=== PATIENT | female | born 1970 | race American Indian/Alaskan Native ===

== ENCOUNTER 2018-03-03 20:17 | Inpatient (IN) | payer OTHER ==
[2018-03-03 20:50] LABS: PROTHROMBIN TIME 10.6 Seconds (9.8-13.1)
[2018-03-03 20:53] LABS: PARTIAL THROMBOPLASTIN TIME 25.1 Seconds (25.6-37.1)
[2018-03-03 20:59] LABS: ALB/GLOB RATIO 1.3 (1.0-2.1); ALBUMIN 4.1 g/dL (3.5-5.0); ALT/SGPT 30 U/L (9-52); AST/SGOT 34 U/L (14-36); BLOOD UREA NITROGEN 9 mg/dl (7-17); CALCIUM 9.2 mg/dL (8.4-10.2); GFR NON-AFRICAN AMERICAN > 60; HDL CHOLESTEROL 42 MG/DL (30-70)
[2018-03-03 21:10] LABS: LDL CHOLESTEROL 106 mg/dL (0-129)
--- NOTE | 2018-03-03 21:19 | ED PDOC ---
HPI:STROKE - Time Time: 20:30 - Historian Historian: Patient - Chief Complaint Chief Complaint: Weakness, Numbness - Onset Date: 03/03/18 Onset: Just prior to presenting (x20min) - Location Locate right:: Upper extremity - Notes: Notes:: Luna Moreno is a 47 year old female, with a past medical history of Graves' disease, who self presents to the emergency department for right arm numbness associated with an episode of weakness onset x20 min prior to arrival. Patient reports during the episode she had a funny sensation to her tongue described as numbness but no facial droop, trouble speaking or walking. Patient also reports feeling numbness to her right thorax and extremity but no weakness, she is able to speak and swallow normally. She denies any headache, nausea, vomit or other medical complaints. PMD: None provided. NIHSS Stroke Scale - Date/Time Evaluation Performed Date Performed: 03/03/18 Time Performed: 20:30 When Was NIHSS Performed: Baseline - How Severe is the Stroke Level of Consciousness: 0=Alert LOC to Questions: 0=Both comments correct LOC to commands: 0=Obeys both correctly Best Gaze: 0=Normal Visual: 0=No visual loss Facial: 0=Normal Motor Arm - Left: 0=No drift Motor Arm - Right: 0=No drift Motor Leg - Left: 0=No drift Motor Leg - Right: 0=No drift Limb Ataxia: 0=Absent Sensory: 0=Normal Best Language: 0=No aphasia Dysarthia: 0=Normal articulation Extinction & Inattention (Neglect): 0=Normal, no object Score: 0 Past Medical History Reviewed: Historical Data, Nursing Documentation, Vital Signs Vital Signs: Last Vital Signs Temp 97.4 F L 03/03/18 20:22 Pulse 66 03/03/18 20:56 Resp 20 03/03/18 20:22 BP 139/89 03/03/18 20:56 Pulse Ox 98 03/03/18 20:22 - Medical History PMH: Graves' Disease - Surgical History Other surgeries: urethral cyst surgery, D&C - Family History Family History: States: Unknown Family Hx - Social History Current smoker - smoking cessation education provided: No Alcohol: Occasional Drugs: Denies - Home Medications Home Medications: Ambulatory Orders Medication Instructions Recorded No Known Home Med 03/03/18 - Allergies Allergies/Adverse Reactions: Allergies Allergy/AdvReac Type Severity Reaction Status Date / Time shellfish derived Allergy RASH Verified 03/03/18 20:22 Review of Systems ROS Statement: Except As Marked, All Systems Reviewed And Found Negative Gastrointestinal: Negative for: Nausea, Vomiting Neurological: Positive for: Weakness (resolved), Numbness (right arm, right thorax and tongue). Negative for: Change in Speech, Headache Physical Exam - Reviewed Nursing Documentation Reviewed: Yes Vital Signs Reviewed: Yes - Physical Exam Appears: Positive for: No Acute Distress Head Exam: Positive for: ATRAUMATIC, NORMAL INSPECTION, NORMOCEPHALIC Skin: Positive for: Normal Color, Warm, Dry Eye Exam: Positive for: Normal appearance, EOMI, PERRL ENT: Positive for: Normal ENT Inspection Neck: Positive for: Painless ROM, Supple Cardiovascular/Chest: Positive for: Regular Rate, Rhythm. Negative for: Murmur Respiratory: Positive for: Normal Breath Sounds. Negative for: Respiratory Distress Gastrointestinal/Abdominal: Positive for: Normal Exam, Soft. Negative for: Tenderness, Guarding, Rebound Back: Positive for: Normal Inspection. Negative for: Vertebral Tenderness Extremity: Positive for: Normal ROM (upper and lower extremities). Negative for : Deformity, Swelling Neurologic/Psych: Positive for: Alert, slab off mill tender II-XII (intact), Oriented (x3), Cerebellar Tests (normal), Gait (steady). Negative for: Motor/Sensory Deficits , Aphasia, Facial Droop - Laboratory Results Result Diagrams: 03/03/18 20:40 03/03/18 20:45 - ECG O2 Sat by Pulse Oximetry: 98 (RA) Pulse Ox Interpretation: Normal - Core Measure Core Measure Indicators: Code Stroke - Critical Care Total Time (In Min): 30 Documented Critical Care: Time excludes all time spent performint seperately billable procedures Medical Decision Making Medical Decision Making: Initial Impression: 47 y/o female with subjective numbness of right upper extremity and episode of weakness which resolved. Code stroke announced. 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 No hemorrhage. No significant white matter disease. Ventricles: Unremarkable. No ventriculomegaly. Bones/joints: Unremarkable. No acute fracture. Soft tissues: Unremarkable. Sinuses: Unremarkable as visualized. No acute sinusitis. Mastoid air cells: Unremarkable as visualized. No mastoid effusion. Sella: Empty appearing sella. IMPRESSION: 1. No acute intracranial finding. 2. 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 3. Empty appearing sella. 21:10 -Discussed case with Dr. Jamison who advised admitting patient tonight for further observation and monitoring. Requested patient had an echocardiogram and CT brain angio in the morning. Patient referred to medical services admission. Diagnosis of paresthesias and numbness. ----- Scribe Attestation: Documented by Andrew Momin, acting as a scribe for Kavon Horton MD. Provider Scribe Attestation: All medical record entries made by the Scribe were at my direction and personally dictated by me. I have reviewed the chart and agree that the record accurately reflects my personal performance of the history, physical exam, medical decision making, and the department course for this patient. I have also personally directed, reviewed, and agree with the discharge instructions and disposition. Disposition - Clinical Impression Clinical Impression: Weakness of one side of body - Patient ED Disposition Is Patient to be Admitted: Yes Discussed With : Harley Jamison (Dr Valle) Doctor Will See Patient In The: Hospital Counseled Patient/Family Regarding: Studies Performed, Diagnosis - Disposition Disposition Time: 21:10 Condition: FAIR - Pt Status Changed To: Hospital Disposition Of: Inpatient - Admit Certification Admit to Inpatient:: After my assessment, the patient will require hospitalization for at least two midnights. This is because of the severity of symptoms shown, intensity of services needed, and/or the medical risk in this patient being treated as an outpatient.
[2018-03-03] MEDS ORDERED: Iodixanol 320 MG/ML 100 ML BOTTLE IV ONE (21:27)
[2018-03-03] MEDS ORDERED: Sodium Chloride 0.9% 50 ML IV ONE (21:27)
[2018-03-03 23:17] LABS: BASO % 0.6 % (0.0-2.0); EOS # 0.1 K/uL (0.0-0.7); EOS % 1.4 % (0.0-4.0); HEMOGLOBIN 12.5 g/dL (12.0-16.0); LYMPH # 3.8 K/uL (1.0-4.3); LYMPH % 46.4 % (20.0-40.0); MEAN CELL VOLUME 88.9 fl (81.0-99.0); MEAN CORPUSCULAR HEMOGLOBIN 29.8 pg (27.0-31.0); MEAN CORPUSCULAR HGB CONC 33.6 g/dL (33.0-37.0); MEAN PLATELET VOLUME 10.3 fl (7.2-11.7); MONO # 0.5 K/uL (0.0-0.8); MONO % 5.6 % (0.0-10.0); NEUT # 3.8 K/uL (1.8-7.0); NRBC % 0.1 % (0.0-0.0); RBC 4.18 Mil/uL (3.80-5.20); RED CELL DISTRIBUTION WIDTH 15.2 % (11.5-14.5); WHITE BLOOD COUNT 8.2 K/uL (4.8-10.8)
[2018-03-04 07:05] LABS: BASO % 0.5 % (0.0-2.0); EOS # 0.1 K/uL (0.0-0.7); EOS % 1.8 % (0.0-4.0); HEMOGLOBIN 11.8 g/dL (12.0-16.0); LYMPH # 2.4 K/uL (1.0-4.3); LYMPH % 40.8 % (20.0-40.0); MEAN CORPUSCULAR HEMOGLOBIN 30.1 pg (27.0-31.0); MEAN CORPUSCULAR HGB CONC 33.9 g/dL (33.0-37.0); MEAN PLATELET VOLUME 9.4 fl (7.2-11.7); MONO # 0.5 K/uL (0.0-0.8); NEUT # 2.9 K/uL (1.8-7.0); NEUT % 47.9 % (50.0-75.0); NRBC % 0.2 % (0.0-0.0); RBC 3.91 Mil/uL (3.80-5.20); RED CELL DISTRIBUTION WIDTH 14.8 % (11.5-14.5)
[2018-03-04 07:25] LABS: BLOOD UREA NITROGEN 8 mg/dl (7-17); CALCIUM 9.1 mg/dL (8.4-10.2); GFR NON-AFRICAN AMERICAN > 60; HDL CHOLESTEROL 39 MG/DL (30-70)
[2018-03-04 07:36] LABS: LDL CHOLESTEROL 102 mg/dL (0-129)
--- NOTE | 2018-03-04 08:41 | CT ---
Date of service: 03/03/2018 PROCEDURE: CT HEAD WITHOUT CONTRAST. HISTORY: code stroke COMPARISON: None available. TECHNIQUE: Axial computed tomography images were obtained through the head/brain without intravenous contrast. Radiation dose: Total exam DLP = mGy-cm. This CT exam was performed using one or more of the following dose reduction techniques: Automated exposure control, adjustment of the mA and/or kV according to patient size, and/or use of iterative reconstruction technique. FINDINGS: HEMORRHAGE: No intracranial hemorrhage. BRAIN: No mass effect or edema. No atrophy or chronic microvascular ischemic changes. VENTRICLES: Unremarkable. No hydrocephalus. CALVARIUM: Unremarkable. PARANASAL SINUSES: Unremarkable as visualized. No significant inflammatory changes. MASTOID AIR CELLS: Unremarkable as visualized. No inflammatory changes. OTHER FINDINGS: None. IMPRESSION: Normal CT of the Head.
--- NOTE | 2018-03-04 09:03 | RAD ---
Date of service: 03/03/2018 HISTORY: Code Stroke COMPARISON: No prior. FINDINGS: LUNGS: No active pulmonary disease. PLEURA: No significant pleural effusion identified, no pneumothorax apparent. CARDIOVASCULAR: Normal. OSSEOUS STRUCTURES: No significant abnormalities. VISUALIZED UPPER ABDOMEN: Normal. OTHER FINDINGS: None. IMPRESSION: No active disease.
[2018-03-04] MEDS ORDERED: Iodixanol 320 MG/ML 100 ML BOTTLE IV ONE (14:14)
[2018-03-04] MEDS ORDERED: Sodium Chloride 0.9% 50 ML IV ONE (14:15)
[2018-03-04] MEDS: Enoxaparin 40 mg Syringe SC SCH (15:30)
[2018-03-04 16:36] LABS: T4 8.87 ug/dl (5.5-11.0)
[2018-03-04 16:49] LABS: T3 1.21 nmol/L (1.49-2.60)
--- NOTE | 2018-03-04 17:43 | CARD ---
APPROVED REPORT Date of service: 03/03/2018 EKG Measurement Heart [id number] IL [id number] [id number] <Conclusion> Normal sinus rhythm Cannot rule out Anterior infarct, age undetermined Abnormal ECG
--- NOTE | 2018-03-04 18:44 | CP.PCM.CON ---
History of Present Illness - History of Present Illness History of Present Illness: Neurology Consultation Note: Mrs. Moreno is a 47-year-old woman with a past medical history of Grave's disease, who states that she developed the sudden onset of left arm numbness associated with some slight weakness that was resolving when she arrived to the ED. When I saw the patient, she said that the numbness has improved, but she still feels like her right arm is "noodley"... CT scan of the head was normal. CTA was pending. Review of Systems - Review of Systems All systems: reviewed and no additional remarkable complaints except Past Patient History - Past Medical History & Family History Past Medical History?: Yes - Past Social History Alcohol: Occasional Drugs: Denies - CARDIAC Hx Cardiac Disorders: No - PULMONARY Hx Respiratory Disorders: No - NEUROLOGICAL Hx Neurological Disorder: No - HEENT Hx HEENT Problems: No - RENAL Hx Chronic Kidney Disease: No - ENDOCRINE/METABOLIC Hx Endocrine Disorders: Yes Other/Comment: Graves Disease - HEMATOLOGICAL/ONCOLOGICAL Hx Blood Disorders: No - INTEGUMENTARY Hx Dermatological Problems: No - MUSCULOSKELETAL/RHEUMATOLOGICAL Hx Musculoskeletal Disorders: No Hx Falls: No - GASTROINTESTINAL Hx Gastrointestinal Disorders: No - GENITOURINARY/GYNECOLOGICAL Hx Genitourinary Disorders: No - PSYCHIATRIC Hx Psychophysiologic Disorder: No Hx Substance Use: No - SURGICAL HISTORY Hx Surgeries: Yes Hx Section: Yes - ANESTHESIA Hx Anesthesia: No Hx Anesthesia Reactions: No Hx Malignant Hyperthermia: No Has any member of the family had a problem w/ anesthesia?: No Meds Allergies/Adverse Reactions: Allergies Allergy/AdvReac Type Severity Reaction Status Date / Time shellfish derived Allergy RASH Verified 03/03/18 20:22 - Medications Medications: Current Medications Aspirin (Aspirin Chewable) 81 mg PO DAILY [facility] Last Admin: 03/04/18 15:30 Dose: 81 mg Enoxaparin Sodium (Lovenox) 40 mg SC DAILY [facility] PRN Reason: Protocol Last Admin: 03/04/18 15:30 Dose: Not Given Physical Exam - Neurological Exam Neurological exam: Alert, CN II-XII Intact, Normal Gait, Oriented x3, Reflexes Normal Additional comments: Slight weakness of the right arm as compared with the left. Sensation was intact. NIHSS = 1 Results - Vital Signs Recent Vital Signs: Last Vital Signs Temp 97.7 F 03/04/18 16:31 Pulse 67 03/04/18 16:31 Resp 16 03/04/18 16:31 BP 149/93 H 03/04/18 16:31 Pulse Ox 100 03/04/18 16:31 - Labs Result Diagrams: 03/04/18 05:00 03/04/18 05:00 Labs: Laboratory Results - last 24 hr 03/03/18 03/03/18 03/03/18 20:28 20:40 20:40 WBC 8.2 RBC 4.18 Hgb 12.5 Hct 37.1 MCV 88.9 MCH 29.8 MCHC 33.6 RDW 15.2 H Plt Count 274 MPV 10.3 Neut % (Auto) 46.0 L Lymph % (Auto) 46.4 H [place] % (Auto) 5.6 Eos % (Auto) 1.4 Baso % (Auto) 0.6 Neut # (Auto) 3.8 Lymph # (Auto) 3.8 [place] # (Auto) 0.5 Eos # (Auto) 0.1 Baso # (Auto) 0.0 PT INR APTT Sodium Potassium Chloride Carbon Dioxide Anion Gap BUN Creatinine Est GFR ( Amer) Est GFR (Non-Af Amer) POC Glucose (mg/dL) 82 Random Glucose Hemoglobin A1c 5.1 Calcium Total Bilirubin AST ALT Alkaline Phosphatase Troponin I Total Protein Albumin Globulin Albumin/Globulin Ratio Triglycerides Cholesterol LDL Cholesterol Direct HDL Cholesterol Vitamin B12 Free T4 Thyroxine (T4) Total T3 TSH 3rd Generation Blood Type Blood Type Confirm Antibody Screen BBK History Checked 03/03/18 03/03/18 03/03/18 20:40 20:40 20:45 WBC RBC Hgb Hct MCV MCH MCHC RDW Plt Count MPV Neut % (Auto) Lymph % (Auto) [place] % (Auto) Eos % (Auto) Baso % (Auto) Neut # (Auto) Lymph # (Auto) [place] # (Auto) Eos # (Auto) Baso # (Auto) PT 10.6 INR 1.0 APTT 25.1 L Sodium 140 Potassium 4.2 Chloride 108 H Carbon Dioxide 25 Anion Gap 11 BUN 9 Creatinine 0.6 L Est GFR ( Amer) > 60 Est GFR (Non-Af Amer) > 60 POC Glucose (mg/dL) Random Glucose 85 Hemoglobin A1c Calcium 9.2 Total Bilirubin 0.7 AST 34 ALT 30 Alkaline Phosphatase 58 Troponin I < 0.0120 Total Protein 7.3 Albumin 4.1 Globulin 3.2 Albumin/Globulin Ratio 1.3 Triglycerides 59 Cholesterol 166 LDL Cholesterol Direct 106 HDL Cholesterol 42 Vitamin B12 Free T4 Thyroxine (T4) Total T3 TSH 3rd Generation Blood Type A POSITIVE Blood Type Confirm Antibody Screen Negative BBK History Checked No verified bt 03/03/18 03/04/18 03/04/18 21:46 05:00 05:00 WBC 6.0 RBC 3.91 Hgb 11.8 L Hct 34.8 MCV 89.0 MCH 30.1 MCHC 33.9 RDW 14.8 H Plt Count 265 MPV 9.4 Neut % (Auto) 47.9 L Lymph % (Auto) 40.8 H [place] % (Auto) 9.0 Eos % (Auto) 1.8 Baso % (Auto) 0.5 Neut # (Auto) 2.9 Lymph # (Auto) 2.4 [place] # (Auto) 0.5 Eos # (Auto) 0.1 Baso # (Auto) 0.0 PT INR APTT Sodium 139 Potassium 3.9 Chloride 108 H Carbon Dioxide 26 Anion Gap 9 L BUN 8 Creatinine 0.6 L Est GFR ( Amer) > 60 Est GFR (Non-Af Amer) > 60 POC Glucose (mg/dL) Random Glucose 89 Hemoglobin A1c Calcium 9.1 Total Bilirubin AST ALT Alkaline Phosphatase Troponin I Total Protein Albumin Globulin Albumin/Globulin Ratio Triglycerides 50 Cholesterol 159 LDL Cholesterol Direct 102 HDL Cholesterol 39 Vitamin B12 382 Free T4 Thyroxine (T4) Total T3 TSH 3rd Generation Blood Type Blood Type Confirm A POSITIVE Antibody Screen BBK History Checked 03/04/18 03/04/18 15:30 15:30 WBC RBC Hgb Hct MCV MCH MCHC RDW Plt Count MPV Neut % (Auto) Lymph % (Auto) Sum[place] % (Auto) Eos % (Auto) Baso % (Auto) Neut # (Auto) Lymph # (Auto) [place] # (Auto) Eos # (Auto) Baso # (Auto) PT INR APTT Sodium Potassium Chloride Carbon Dioxide Anion Gap BUN Creatinine Est GFR ( Amer) Est GFR (Non-Af Amer) POC Glucose (mg/dL) Random Glucose Hemoglobin A1c Calcium Total Bilirubin AST ALT Alkaline Phosphatase Troponin I Total Protein Albumin Globulin Albumin/Globulin Ratio Triglycerides Cholesterol LDL Cholesterol Direct HDL Cholesterol Vitamin B12 Free T4 1.25 Thyroxine (T4) 8.87 Total T3 1.21 L TSH 3rd Generation 0.33 L Blood Type Blood Type Confirm Antibody Screen BBK History Checked Assessment & Plan (1) Weakness of one side of body Assessment and Plan: This may be technology sales representative of an acute stroke, but the symptoms are mild. I recommend the followin. Telemetry 2. MRI brain without contrast 3. Echocardiogram 4. Aspirin 81 mg daily 5. PT/OT eval 6. Fluids with NS at 100 mL/hr 7. Permissive HTN for the next 24 hours (only treat BP higher than 220/100 mm Hg ) 8. Check HbA1c, B12, folate, TSH, T3/4, vitamin D level, homocysteine level, hypercoagulable state work-up 9. Case management consult Thank you. Status: Acute
[2018-03-05] MEDS ORDERED: Ammonium Lactate 12% Cream (140 g) TOP ONE (03:36)
[2018-03-05] MEDS ORDERED: MethylPREDNISolone 40 mg Vial IVP ONE ×2 (08:05→17:30)
[2018-03-05] MEDS: Sodium Chloride 0.9% 1,000 ML IV SCH (08:35)
[2018-03-05] MEDS: Enoxaparin 40 mg Syringe SC SCH (08:36)
--- NOTE | 2018-03-05 13:45 | MRI ---
Date of service: 03/05/2018 PROCEDURE: MRI BRAIN WITHOUT CONTRAST HISTORY: right arm numbness COMPARISON: Comparison is made to the previous CT head dated 03/03/2018 and CTA dated 03/04/2018 TECHNIQUE: Multiplanar, multisequence MR images of the brain were obtained without intravenous contrast enhancement. FINDINGS: HEMORRHAGE: No evidence of acute intracranial hemorrhage. DWI: There are 2 adjacent foci of diffusion restriction measures each less than 1 centimeter at the left superior frontal parietal lobes image 21 series 5 consistent with acute there are corner infarcts. BRAIN PARENCHYMA: No mass effect or edema. No atrophy or chronic microvascular ischemic changes. VENTRICLES: Unremarkable. No hydrocephalus. CRANIUM: Unremarkable. ORBITS: Grossly unremarkable. PARANASAL SINUSES/MASTOIDS: Clear VASCULAR SYSTEM: Skull base flow voids intact. OTHER FINDINGS: None. IMPRESSION: Two small sub centimeter adjacent foci of diffusion restriction at the superior posterior aspect of left frontal lobe consistent with acute lacunar infarcts.
--- NOTE | 2018-03-05 14:32 | CT ---
Date of service: 03/04/2018 PROCEDURE: CT Angiography of the Brain. HISTORY: CODE stroke 1174 mGy dose COMPARISON: None available. TECHNIQUE: CT angiography of the intracranial arteries was performed. Coronal and sagittal maximum intensity projection reformated images were generated. This CT exam was performed using one or more of the following dose reduction techniques: Automated exposure control, adjustment of the mA and/or kV according to patient size, and/or use of iterative reconstruction technique. FINDINGS: INTERNAL CEREBRAL ARTERIES: Unremarkable. The skull base, petrous, cavernous and supraclinoid segments are bilaterally widely patent. ANTERIOR CEREBRAL ARTERIES: Unremarkable. A1 and A2 segments are widely patent. Smaller distal branches unremarkable, as visualized. MIDDLE CEREBRAL ARTERIES: Unremarkable. M1 and M2 segments are widely patent. Perisylvian branches grossly symmetric. POSTERIOR CIRCULATION: Basilar Artery: Unremarkable. Distal Vertebral Arteries: There is anatomic variation with the right vertebral artery ending in the plica. Posterior Cerebral Arteries: Anatomic variation but patent. Posterior Inferior Cerebellar Arteries: Unremarkable. ANEURYSM/ VASCULAR MALFORMATIONS: None. OTHER FINDINGS: None. IMPRESSION: Unremarkable CT angiography examination of the brain. This agrees with preliminary report provided by the on-call radiologist.
--- NOTE | 2018-03-05 15:48 | CP.PCM.PN ---
Subjective - Date & Time of Evaluation Date of Evaluation: 03/05/18 Time of Evaluation: 15:44 - Subjective Subjective: Mrs. Moreno was seen and examined today at bedside. I discussed the MRI results with her and informed her that she had two small distal infarcts that appear to be cardio-embolic. We also talked about the possible need for a loop recorder and we will be performing the echocardiogram to evaluate for a right to left shunt. She expressed an understanding of the condition. She had no new complaints today and said that she felt that the numbness and the "noodly" feeling of her right hand was improved. She received Solumedrol and benadryl for a reaction to IV contrast. Objective - Vital Signs/Intake and Output Vital Signs (last 24 hours): Temp Pulse Resp BP Pulse Ox 98.0 F 68 20 128/76 97 03/05/18 12:42 03/05/18 12:42 03/05/18 12:42 03/05/18 12:42 03/05/18 12:42 - Medications Medications: Current Medications Acetaminophen (Tylenol 325mg Tab) 650 mg PO Q6 PRN PRN Reason: Pain, Mild (1-3) Last Admin: 03/04/18 20:40 Dose: 650 mg Alprazolam (Xanax) 0.25 mg PO Q12 PRN PRN Reason: Anxiety Stop: 03/11/18 22:06 Aspirin (Aspirin Chewable) 81 mg PO DAILY [facility] Last Admin: 03/05/18 08:36 Dose: 81 mg Atorvastatin Calcium (Lipitor) 20 mg PO DAILY [facility] Enoxaparin Sodium (Lovenox) 40 mg SC DAILY [facility] PRN Reason: Protocol Last Admin: 03/05/18 08:36 Dose: 40 mg Sodium Chloride (Sodium Chloride 0.9%) 1,000 mls @ 100 mls/hr IV .Q10H [facility] Stop: 03/06/18 07:59 Last Admin: 03/05/18 08:35 Dose: 100 mls/hr - Labs Labs: 03/04/18 05:00 03/04/18 05:00 PT 10.6 Seconds (9.8-13.1) 03/03/18 20:40 INR 1.0 03/03/18 20:40 APTT 25.1 Seconds (25.6-37.1) L 03/03/18 20:40 - Neurological Exam Neurological Exam: Alert, Altered, Awake, CN II-XII Intact, Oriented x3 Neuro motor strength exam: Left Upper Extremity: 5, Right Upper Extremity: 5, Left Lower Extremity: 5, Right Lower Extremity: 5 Additional comments: NIHSS = 1 for mild pronator drift Assessment and Plan (1) Ischemic stroke Assessment & Plan: The appearance of the stroke is cardio-embolic due to location and size. I recommend echocardiogram with bubble study and hypercoagulable work-up. We will consult cardiology for possible loop recorder insertion to evaluate for paroxysmal atrial fibrillation. Status: Acute
[2018-03-05 17:42] LABS: FOLATE 8.5 ng/mL
[2018-03-06] MEDS: Sodium Chloride 0.9% 1,000 ML IV SCH (04:00)
[2018-03-06] MEDS: Enoxaparin 40 mg Syringe SC SCH (08:01)
--- NOTE | 2018-03-06 08:37 | PN ---
Copied To: Salvador Valle MD Attending MD: Salvador Valle MD DATE: 03/05/2018 SUBJECTIVE: The patient is seen and examined. Interim events noted. Consults noted and appreciated. Neurology interventions noted and appreciated. The patient remains in progressive care unit, on telemetry monitoring. The patient feels okay. Denies any complaints. The right chest and arm symptoms have resolved. No chest pain. No shortness of breath. The patient had an episode of facial swelling after iodine injection. PHYSICAL EXAMINATION: GENERAL: The patient is in no acute distress. VITAL SIGNS: Stable. HEART: S1 and S2, normal and regular. LUNGS: Good bilateral air exchange. ABDOMEN: Soft, nontender. EXTREMITIES: No edema. No calf swelling. No tenderness. No acute ischemia. FIGHTER PILOT: Essentially unchanged . LABORATORY DATA: Available diagnostic data reviewed. PT, PTT, MRI report is pending. Echocardiogram is pending. DIAGNOSTIC DATA: Available diagnostic data reviewed. CTA and MRI is done and reports are pending. Echocardiogram is pending. Telemetry monitoring does not reveal significant arrhythmia. ASSESSMENT AND PLAN: Overall, the patient's general medical condition is stable. Plan as ordered. Salvador Valel MD
--- NOTE | 2018-03-06 09:01 | HP ---
Copied To: Salvador Valle MD Attending MD: Salvador Valle MD CHIEF COMPLAINT: Right-sided weakness and numbness in the upper extremity. HISTORY OF PRESENT ILLNESS: This is 47-year-old female without significant past medical history, who had annual blood test and exam done about a year ago and was told to have everything normal except history of Graves disease, for which she is not on any medication. She was having right-sided numbness and weakness on right upper extremity, so the patient was brought to emergency room and was admitted for further management. REVIEW OF SYSTEMS: Positive for right upper extremity weakness and numbness. Review of systems otherwise negative for headache, dizziness, syncope, loss of consciousness, chest pain, shortness of breath, nausea, vomiting, diarrhea, constipation, any knee joint or lower extremity pain other than the one described in history of present illness. Review of systems of all other organ system is unremarkable. PAST MEDICAL HISTORY: Remarkable for Graves disease. PAST SURGICAL HISTORY: Remarkable for section, tubal ligation. PERSONAL HISTORY: The patient is currently nonsmoker, nondrinker, no substance abuse. MEDICATIONS: The patient is not on any medication. ALLERGIES: THE PATIENT IS NOT ALLERGIC TO ANY MEDICATION. FAMILY HISTORY: Significant for blood pressure and diabetes. PHYSICAL EXAMINATION: GENERAL: Well-built, well-nourished, overweight female, in no acute distress. VITAL SIGNS: Temperature . Salvador Valle MD
[2018-03-06] MEDS ORDERED: DiphenhydrAMINE 50 mg/ml Inj IVP STA (10:36)
[2018-03-06] MEDS ORDERED: Ergocalciferol 50,000 Intl Units Cap PO SCH (12:45)
--- NOTE | 2018-03-06 13:43 | PN ---
Copied To: Salvador Valle MD Attending MD: Salvador Valle MD DATE: 03/06/2018 SUBJECTIVE: The patient seen and examined. Interim events noted. Consults noted and appreciated. Neurology followup and intervention noted and appreciated. The patient remains in progressive care unit on telemetry monitoring. The patient with acute CVA. Feels okay. Denies any new complaint of chest pain or shortness of breath. Right upper extremity numbness and paresthesia is improved. PHYSICAL EXAMINATION: GENERAL: The patient is in no acute distress. VITAL SIGNS: Stable. HEART: S1 and S2. Normal and regular. LUNGS: Good bilateral air exchange. ABDOMEN: Soft and nontender. EXTREMITIES: No edema. No calf swelling. No tenderness. No acute ischemia. [employer]URN [employer]: Exam is essentially unchanged. LABORATORY DATA: Available diagnostic data reviewed. MRI showed true lacunar infarct. ASSESSMENT AND PLAN: The patient is pending for echocardiogram, may also need Loop recorder. Case and plan discussed with the patient at length. Salvador Valle MD
--- NOTE | 2018-03-06 15:59 | CP.PCM.CON ---
History of Present Illness - History of Present Illness History of Present Illness: Consultation for evaluation of cardiac cause of thrombo-embolic CVA HPI 47 year old female with no significant pmhx going thru menopause was taking OTC amberen for sx of menopause who presented with tingling around the mouth and right arm numbness while she was going for dinner in [facility]. Daughter was diagnosed with a DVT recently. No other family hx of premature CAD or CVA. Review of Systems - Review of Systems Systems not reviewed;Unavailable: Acuity of Condition - Constitutional Constitutional: As Per HPI - EENT Eyes: As Per HPI Ears: As Per HPI Nose/Mouth/Throat: As Per HPI - Breasts Breasts: As Per HPI - Cardiovascular Cardiovascular: As Per HPI - Respiratory Respiratory: As Per HPI - Gastrointestinal Gastrointestinal: As Per HPI - Genitourinary Genitourinary: As Per HPI - Reproductive: Female Reproductive:Female: As Per HPI - Menstruation Menstruation: As Per HPI - Musculoskeletal Musculoskeletal: As Per HPI - Integumentary Integumentary: As Per HPI - Neurological Neurological: As Per HPI - Psychiatric Psychiatric: As Per HPI - Endocrine Endocrine: As Per HPI - Hematologic/Lymphatic Hematologic: As Per HPI Past Patient History - Past Medical History & Family History Past Medical History?: Yes - Past Social History Alcohol: Occasional Drugs: Denies - CARDIAC Hx Cardiac Disorders: No - PULMONARY Hx Respiratory Disorders: No - NEUROLOGICAL Hx Neurological Disorder: No - HEENT Hx HEENT Problems: No - RENAL Hx Chronic Kidney Disease: No - ENDOCRINE/METABOLIC Hx Endocrine Disorders: Yes Other/Comment: Graves Disease - HEMATOLOGICAL/ONCOLOGICAL Hx Blood Disorders: No - INTEGUMENTARY Hx Dermatological Problems: No - MUSCULOSKELETAL/RHEUMATOLOGICAL Hx Musculoskeletal Disorders: No Hx Falls: No - GASTROINTESTINAL Hx Gastrointestinal Disorders: No - GENITOURINARY/GYNECOLOGICAL Hx Genitourinary Disorders: No - PSYCHIATRIC Hx Psychophysiologic Disorder: No Hx Substance Use: No - SURGICAL HISTORY Hx Surgeries: Yes Hx Section: Yes - ANESTHESIA Hx Anesthesia: No Hx Anesthesia Reactions: No Hx Malignant Hyperthermia: No Has any member of the family had a problem w/ anesthesia?: No Meds Allergies/Adverse Reactions: Allergies Allergy/AdvReac Type Severity Reaction Status Date / Time shellfish derived Allergy RASH Verified 03/03/18 20:22 - Medications Medications: Current Medications Acetaminophen (Tylenol 325mg Tab) 650 mg PO Q6 PRN PRN Reason: Pain, Mild (1-3) Last Admin: 03/05/18 17:53 Dose: 650 mg Alprazolam (Xanax) 0.25 mg PO Q12 PRN PRN Reason: Anxiety Stop: 03/11/18 22:06 Aspirin (Aspirin Chewable) 81 mg PO DAILY [facility] Last Admin: 03/06/18 08:00 Dose: 81 mg Atorvastatin Calcium (Lipitor) 20 mg PO DAILY [facility] Last Admin: 03/06/18 08:00 Dose: 20 mg Cholecalciferol (Vitamin D) 1,000 intlu PO DAILY [facility] Diphenhydramine HCl (Benadryl) 25 mg IVP Q6 PRN PRN Reason: Itching / Pruritus Enoxaparin Sodium (Lovenox) 40 mg SC DAILY [facility] PRN Reason: Protocol Last Admin: 03/06/18 08:01 Dose: 40 mg Ergocalciferol (Drisdol 50,000 Intl Units Cap) 1 cap PO Q7D [facility] Last Admin: 03/06/18 14:25 Dose: 1 cap Methimazole (Tapazole) 5 mg PO BID [facility] Physical Exam - Constitutional Appears: Well - Head Exam Head Exam: ATRAUMATIC, NORMAL INSPECTION, NORMOCEPHALIC - Eye Exam Eye Exam: EOMI, Normal appearance, PERRL Pupil Exam: NORMAL ACCOMODATION, PERRL - ENT Exam ENT Exam: Mucous Membranes Moist, Normal Exam - Neck Exam Neck exam: Positive for: Normal Inspection - Respiratory Exam Respiratory Exam: Clear to Auscultation Bilateral, NORMAL BREATHING PATTERN - Cardiovascular Exam Cardiovascular Exam: REGULAR RHYTHM, RRR, Systolic Murmur - GI/Abdominal Exam GI & Abdominal Exam: Normal Bowel Sounds, Soft. absent: Tenderness - Extremities Exam Extremities exam: Positive for: normal inspection - Back Exam Back exam: NORMAL INSPECTION - Neurological Exam Neurological exam: Alert, CN II-XII Intact, Normal Gait, Oriented x3, Reflexes Normal - Psychiatric Exam Psychiatric exam: Normal Affect, Normal Mood - Skin Skin Exam: Dry, Intact, Normal Color, Warm Results - Vital Signs Recent Vital Signs: Last Vital Signs Temp 98.1 F 03/06/18 12:58 Pulse 72 03/06/18 12:58 Resp 20 03/06/18 12:58 BP 146/90 03/06/18 12:58 Pulse Ox 100 03/06/18 12:58 - Labs Result Diagrams: 03/04/18 05:00 03/04/18 05:00 Labs: Laboratory Results - last 24 hr 03/04/18 03/05/18 03/05/18 15:30 05:00 05:00 25-OH Vitamin D Total 17.0 L Folate 8.5 Homocysteine 7.3 Free T3 pg/mL 4.46 Assessment & Plan (1) Palpitations Assessment and Plan: etiology unclear outpt event monitor Status: Acute (2) Ischemic stroke Assessment and Plan: etiology ? thromboembolic echo with bubble study hypercoagulable w/u Status: Acute (3) Weakness of one side of body Status: Acute
[2018-03-06] MEDS: methIMAzole 5 MG TAB PO SCH (17:25)
--- NOTE | 2018-03-06 17:56 | CARD ---
APPROVED REPORT Date of service: 03/06/2018 EXAM: Two-dimensional and M-mode echocardiogram with Doppler, color Doppler with bubble study. Other Information Quality : GoodRhythm : NSR INDICATION CVA/TIA Echo Enhancing Agent Indication: Rule Out Septal Defect Agent/Amount Used: Agitated Saline 2D DIMENSIONS IVSd1.10 (0.7-1.1cm)LVDd4.34 (3.9-5.9cm) LVOT Diameter2.17 (1.8-2.4cm)PWd1.13 (0.7-1.1cm) IVSs1.55 (0.8-1.2cm)LVDs2.90 (2.5-4.0cm) FS (%) 33.1 %PWs1.58 (0.8-1.2cm) M-Mode DIMENSIONS Left Atrium (MM)4.29 (2.5-4.0cm)IVSd1.12 (0.7-1.1cm) Aortic Root2.88 (2.2-3.7cm)LVDd4.91 (4.0-5.6cm) Aortic Cusp Exc.1.71 (1.5-2.0cm)PWd0.91 (0.7-1.1cm) IVSs1.47 cmFS (%) 42 % LVDs2.85 (2.0-3.8cm)PWs1.71 cm Aortic Valve AoV Peak Naoittlz987.4cm/sAoV VTI26.7cmAO Peak GR.6mmHg LVOT Peak Bpismxso88.3cm/sLVOT VTI18.67cmAO Mean GR.3mmHg Mitral Valve MV E Ombrlipa11.8cm/sMV DECEL [id number] A Gspitwsd39.7cm/s MV ADK53omG/A ratio1.1MVA (PHT)3.66cm2 TDI Lateral E' Peak V13.20cm/sMedial E' Peak V11.24cm/sE/Lateral E'6.3 E/Medial E'7.4 Pulmonary Valve PV Peak Nkdqqxsg910.8cm/s Tricuspid Valve TR Peak Ywvtzvar279uk/sRAP DZHZGFYH31hbOcZY Peak Gr.22mmHg [id number] LEFT VENTRICLE The left ventricle is normal size. There is normal left ventricular wall thickness. The left ventricular systolic function is normal. The estimated ejection fraction is 55-60% No regional wall motion abnormalities noted.. The left ventricular diastolic function is normal. No left ventricle thrombus noted on this study. There is no ventricular septal defect visualized. There is no mass noted in the left ventricle. RIGHT VENTRICLE The right ventricle is normal size. There is normal right ventricular wall thickness. The right ventricular systolic function is normal. ATRIA The left atrium size is normal. The right atrium size is normal. The interatrial septum is intact with no evidence for an atrial septal defect. No evidence of patent foramen ovale via bubble study AORTIC VALVE The aortic valve is normal in structure. No aortic regurgitation is present. There is no aortic valvular stenosis. MITRAL VALVE The mitral valve is normal in structure. There is no mitral valve stenosis. There is trivial mitral valve regurgitation noted. TRICUSPID VALVE The tricuspid valve is normal in structure. There is trivial tricuspid valve regurgitation noted. PASP within normal limits PULMONIC VALVE The pulmonary valve is normal in structure. There is mild pulmonic valvular regurgitation. GREAT VESSELS The aortic root is normal in size. The ascending aorta is normal in size. The pulmonary artery is normal. The IVC is normal in size and collapses >50% with inspiration. PERICARDIAL EFFUSION There is no pericardial effusion. <Conclusion> Trivial TR/mild PI with normal PAP Dilated left atrium Normal LV function The estimated ejection fraction is 55-60% No evidence of PFO
[2018-03-06] MEDS: DiphenhydrAMINE 50 mg/ml Inj IVP PRN (20:59)
--- NOTE | 2018-03-06 23:43 | CON ---
Copied To: Ayaka Vinson MD Attending MD: Ayaka Vinson MD DATE: 03/06/2018 ENDOCRINOLOGY CONSULTATION LOCATION: Room 416, bed 1. HISTORY OF PRESENT ILLNESS: This is a 47-year-old female with known history of Graves disease, currently off thyroid medication and presenting here with sudden onset of right-sided weakness initially and the right upper arm and extending to the right hemithorax and lower extremity and is now undergoing neurological and cardiac workup at this time and is being referred for endocrine evaluation of abnormal thyroid function studies. PAST MEDICAL HISTORY: As mentioned above, history of Graves disease, previously on medical therapy with thiourea but is currently off medications at this time. History of hypertensive cardiovascular disease and dyslipidemia. FAMILY HISTORY: Positive for hypertension and heart disease. No known thyroid endocrinopathy. SOCIAL HISTORY: The patient has a supportive family. No known substance use. REVIEW OF SYSTEMS: As mentioned above. Admits to generalized body weakness with easy fatigability and tiredness and suboptimal energy level. Also admits to sudden onset of dizziness and lightheadedness, episodic in nature and worse on the day of admission. No precordial chest pain but admits to occasional bouts of shortness of breath especially on exertion. Her oral intake has been variable with occasional nausea and dyspepsia and habitual constipation. PHYSICAL EXAMINATION: GENERAL: This is an average-built female, in no apparent distress with a blood pressure of 140/80, pulse of 70 beats per minute and regular, temperature 98, respirations 20. Height is 5 feet 4 inches. Weight is 196 pounds. HEENT: Head is normocephalic. Eyes anicteric with pink conjunctivae. Funduscopy not possible at this time. Ears, nose and throat otherwise normal. NECK: Supple. Thyroid gland shows nodular thyromegaly, which is firm and nontender with no overt thyroid bruits or palpable nodules or adenopathy. HEART: Adynamic precordium. S1, S2 are rapid and regular. LUNGS: Clear to auscultation. ABDOMEN: Flat, soft with positive bowel sounds. EXTREMITIES: No peripheral edema. Pulses are +2 bilaterally. LABORATORY DATA: Her chemistries showed a BUN of 8, sodium 139, potassium 3.9, chloride 108, CO2 of 26, glucose 89, and creatinine 0.6. Her thyroid studies showed a T4 or thyroxine level of 8.87 with a free T4 of 1.25 and a total T3 of 1.21 and a TSH of 0.33. Her cholesterol is 169 and HDL of 39. ASSESSMENT: This is a 47-year-old female with Graves disease and underlying nodular goiter, presenting here with acute transient ischemic event and undergoing neurological workup for a cerebrovascular event and also a concomitant cardiac workup for possible cardioembolic stroke and is now being referred for endocrine evaluation and management. She remains clinically euthyroid but biochemically has evidence of subclinical hyperthyroidism with a superimposed acute sick euthyroid syndrome as noted thereof. PLAN OF MANAGEMENT: We will start her on a very low dose of medical therapy with Tapazole given as 5 mg b.i.d. after meals to start today as ordered. We will obtain serial chemistries and supplement accordingly as needed. We will also obtain serial thyroid studies with a comprehensive thyroid hormonal profile to include the thyroid peroxidase antibody and a thyroid-stimulating immunoglobulin which will confirm and/or indicate the presence of underlying thyroid autoimmunity. We will obtain serial chemistries and supplement accordingly as needed. We will follow. We will also consider a thyroid ultrasound electively which can be done on the outpatient or if she is still . Ayaka Vinson MD
[2018-03-07] MEDS: DiphenhydrAMINE 50 mg/ml Inj IVP PRN ×2 (04:19→23:30)
[2018-03-07 06:05] LABS: ALB/GLOB RATIO 1.3 (1.0-2.1); ALBUMIN 3.6 g/dL (3.5-5.0); ALT/SGPT 26 U/L (9-52); AST/SGOT 25 U/L (14-36); BLOOD UREA NITROGEN 11 mg/dl (7-17); CALCIUM 8.5 mg/dL (8.4-10.2); GFR NON-AFRICAN AMERICAN > 60
[2018-03-07 06:08] LABS: T4 10.9 ug/dl (5.5-11.0)
[2018-03-07] MEDS: Cholecalciferol 1,000 INTLU TAB PO SCH (09:27)
[2018-03-07] MEDS: methIMAzole 5 MG TAB PO SCH (09:27)
[2018-03-07] MEDS: Enoxaparin 40 mg Syringe SC SCH (09:27)
--- NOTE | 2018-03-07 11:41 | CP.PCM.PN ---
Subjective - Date & Time of Evaluation Date of Evaluation: 03/07/18 Time of Evaluation: 11:37 - Subjective Subjective: Ms. Moreno was seen and examined at the bedside. She is alert, oriented in all spheres wit complains of mild itchiness in her right facial area ( receiving benadryl and steroid for allergy reaction from contrast). She is very conversant with episode of feeling anxious due to her current condition. She moves all extremities spontaneously with no weakness or numbness. Explained in lengthy the importance of blood pressure control, benefits of loop recorder, verbalizes understanding. There was no untoward events overnight. Objective - Vital Signs/Intake and Output Vital Signs (last 24 hours): Temp Pulse Resp BP Pulse Ox 98.3 F 69 20 143/79 98 03/07/18 08:00 03/07/18 08:00 03/07/18 08:00 03/07/18 08:00 03/07/18 08:00 - Medications Medications: Current Medications Acetaminophen (Tylenol 325mg Tab) 650 mg PO Q6 PRN PRN Reason: Pain, Mild (1-3) Last Admin: 03/05/18 17:53 Dose: 650 mg Alprazolam (Xanax) 0.25 mg PO Q12 PRN PRN Reason: Anxiety Stop: 03/11/18 22:06 Aspirin (Aspirin Chewable) 81 mg PO DAILY [facility] Last Admin: 03/07/18 09:27 Dose: 81 mg Atorvastatin Calcium (Lipitor) 20 mg PO DAILY [facility] Last Admin: 03/07/18 09:27 Dose: 20 mg Cholecalciferol (Vitamin D) 1,000 intlu PO DAILY [facility] Last Admin: 03/07/18 09:27 Dose: 1,000 intlu Diphenhydramine HCl (Benadryl) 25 mg IVP Q6 PRN PRN Reason: Itching / Pruritus Last Admin: 03/07/18 04:19 Dose: 25 mg Ergocalciferol (Drisdol 50,000 Intl Units Cap) 1 cap PO Q7D [facility] Last Admin: 03/06/18 14:25 Dose: 1 cap Methimazole (Tapazole) 5 mg PO BID [facility] Last Admin: 03/07/18 09:27 Dose: 5 mg - Labs Labs: 03/04/18 05:00 03/07/18 05:24 PT 10.6 Seconds (9.8-13.1) 03/03/18 20:40 INR 1.0 03/03/18 20:40 APTT 25.1 Seconds (25.6-37.1) L 03/03/18 20:40 - Constitutional Appears: No Acute Distress - Head Exam Head Exam: NORMAL INSPECTION - Eye Exam Pupil Exam: PERRL - Neurological Exam Neurological Exam: Alert, Awake, Oriented x3 Neuro motor strength exam: Left Upper Extremity: 5, Right Upper Extremity: 5, Left Lower Extremity: 5, Right Lower Extremity: 5 Additional comments: no neuro deficits noted. Assessment and Plan (1) Ischemic stroke Assessment & Plan: Continue all current medical regimen. Recommend blood pressure control, follow up with neurology, cardiology, and endocrinology upon discharge. Status: Acute
--- NOTE | 2018-03-07 13:18 | PN ---
Copied To: Salvador Valle MD Attending MD: Salvador Valle MD DATE: 03/07/2018 SUBJECTIVE: The patient seen and examined. Interim events noted. Consults noted and appreciated. Cardiology followup and intervention noted and appreciated. The patient remains in progressive care unit, on telemetry monitoring. She complains of allergic symptoms from with itching, sore throat, and face puffiness. No breathing difficulty. No speaking difficulty. No difficulty in eating. PHYSICAL EXAMINATION: GENERAL: The patient is in no acute distress. VITAL SIGNS: Stable. HEART: S1 and S2. Normal and regular. LUNGS: Good bilateral air exchange. ABDOMEN: Soft and nontender. EXTREMITIES: No edema. No calf swelling. No tenderness. No acute ischemia. CONVALESCENT SITTER: Exam is essentially unchanged. The patient does have some puffiness, but no overt rash or angioedema on face. LABORATORY DATA: Available diagnostic data reviewed. Telemetry monitoring shows occasional episodes of tachycardia, but no irregularity noted. Echocardiogram is essentially unremarkable. ASSESSMENT AND PLAN: Overall, the patient is medically stable. Plan as ordered. Salvador Valle MD
--- NOTE | 2018-03-07 19:30 | PN ---
Copied To: Ayaka Vinson MD Attending MD: Ayaka Vinson MD DATE: 03/07/2018 ENDO FOLLOWUP NOTE LOCATION: In room 416. SUBJECTIVE: This is a 47-year-old female presenting here with sudden onset of right-sided paresthesias and the possibility of a cardio or thromboembolic CVA is being worked up at this time and is also being followed closely for metabolic management. She also had accelerated hypertension and tachycardia as noted. LABORATORY DATA: Her latest chemistries showed a BUN of 11, sodium 140, potassium 3.4, chloride 107, CO2 of 29, glucose 85, and creatinine 0.6. The repeat thyroid studies showed a T4 of 10.9 with a TSH of 1.05 and a serum cortisol of 7.2. ASSESSMENT: This is a 47-year-old female with subclinical hyperthyroidism, which is actually known from even the prior admission and has been started here on a low-dose of medical therapy as given and tolerated. She clearly has the so-called subclinical hyperthyroidism, most likely related to autoimmune thyroiditis with a concomitant nodular goiter as noted historically although clinically there is no overt palpable thyroid nodules or any thyroid bruits noted otherwise. PLAN OF MANAGEMENT: As discussed lengthily with the patient and her family at bedside, the imperative need for initiation of medical therapy even of a smallest dose cannot but be overemphasized and especially with the recent cardiac tachyarrhythmias, we will be very diligent in taking at least a low-dose medical therapy and she will follow up with her csr technician on the outpatient. We will continue the Tapazole given as 5 mg b.i.d. after meals for inpatient use and upon discharge we would recommend a lower dose of Tapazole given as 5 mg once daily in the evening as ordered. The thyroid antibodies, i.e., the thyroid stimulating immunoglobulin and the thyroid peroxidase antibody have been sent out, which will confirm and/or indicate the presence of underlying thyroid autoimmunity. We will obtain serial chemistries and supplement accordingly as needed. We will follow. Ayaka Vinson MD
[2018-03-08 06:11] LABS: HEMOGLOBIN 12.5 g/dL (12.0-16.0); MEAN CELL VOLUME 87.1 fl (81.0-99.0); MEAN CORPUSCULAR HEMOGLOBIN 30.1 pg (27.0-31.0); MEAN CORPUSCULAR HGB CONC 34.5 g/dL (33.0-37.0); RBC 4.15 Mil/uL (3.80-5.20); RED CELL DISTRIBUTION WIDTH 14.7 % (11.5-14.5); WHITE BLOOD COUNT 15.1 K/uL (4.8-10.8)
[2018-03-08 06:12] LABS: BLOOD UREA NITROGEN 11 mg/dl (7-17); CALCIUM 9.4 mg/dL (8.4-10.2); GFR NON-AFRICAN AMERICAN > 60
[2018-03-08 06:25] LABS: T4 10.6 ug/dl (5.5-11.0)
[2018-03-08] MEDS: methIMAzole 5 MG TAB PO SCH ×2 (09:04→17:22)
[2018-03-08] MEDS: Cholecalciferol 1,000 INTLU TAB PO SCH (09:05)
--- NOTE | 2018-03-08 09:19 | CP.PCM.DIS ---
Provider - Provider Date of Admission: 03/03/18 21:32 Attending physician: Salvador Valle MD Time Spent in preparation of Discharge (in minutes): 20 Diagnosis - Discharge Diagnosis (1) Ischemic stroke Status: Acute (2) Weakness of one side of body Status: Acute Hospital Course - Lab Results Lab Results: Most Recent Lab Values WBC 15.1 K/uL (4.8-10.8) H D 03/08/18 05:20 RBC 4.15 Mil/uL (3.80-5.20) 03/08/18 05:20 Hgb 12.5 g/dL (12.0-16.0) 03/08/18 05:20 Hct 36.2 % (34.0-47.0) 03/08/18 05:20 MCV 87.1 fl (81.0-99.0) 03/08/18 05:20 MCH 30.1 pg (27.0-31.0) 03/08/18 05:20 MCHC 34.5 g/dL (33.0-37.0) 03/08/18 05:20 RDW 14.7 % (11.5-14.5) H 03/08/18 05:20 Plt Count 293 K/uL (130-400) 03/08/18 05:20 MPV 9.4 fl (7.2-11.7) 03/04/18 05:00 Neut % (Auto) 47.9 % (50.0-75.0) L 03/04/18 05:00 Lymph % (Auto) 40.8 % (20.0-40.0) H 03/04/18 05:00 Schley % (Auto) 9.0 % (0.0-10.0) 03/04/18 05:00 Eos % (Auto) 1.8 % (0.0-4.0) 03/04/18 05:00 Baso % (Auto) 0.5 % (0.0-2.0) 03/04/18 05:00 Neut # (Auto) 2.9 K/uL (1.8-7.0) 03/04/18 05:00 Lymph # (Auto) 2.4 K/uL (1.0-4.3) 03/04/18 05:00 Schley # (Auto) 0.5 K/uL (0.0-0.8) 03/04/18 05:00 Eos # (Auto) 0.1 K/uL (0.0-0.7) 03/04/18 05:00 Baso # (Auto) 0.0 K/uL (0.0-0.2) 03/04/18 05:00 PT 10.6 Seconds (9.8-13.1) 03/03/18 20:40 INR 1.0 03/03/18 20:40 APTT 25.1 Seconds (25.6-37.1) L 03/03/18 20:40 Sodium 139 mmol/l (132-148) 03/08/18 05:20 Potassium 3.4 MMOL/L (3.6-5.0) L 03/08/18 05:20 Chloride 104 mmol/L (98-107) 03/08/18 05:20 Carbon Dioxide 28 mmol/L (22-30) 03/08/18 05:20 Anion Gap 10 (10-20) 03/08/18 05:20 BUN 11 mg/dl (7-17) 03/08/18 05:20 Creatinine 0.7 mg/dl (0.7-1.2) 03/08/18 05:20 Est GFR ( Amer) > 60 03/08/18 05:20 Est GFR (Non-Af Amer) > 60 03/08/18 05:20 POC Glucose (mg/dL) 82 mg/dL (65-110) 03/03/18 20:28 Random Glucose 92 mg/dL (65-105) 03/08/18 05:20 Hemoglobin A1c 5.1 % (4.2-6.5) 03/05/18 05:00 Calcium 9.4 mg/dL (8.4-10.2) 03/08/18 05:20 Total Bilirubin 0.6 mg/dl (0.2-1.3) 03/07/18 05:24 AST 25 U/L (14-36) 03/07/18 05:24 ALT 26 U/L (9-52) 03/07/18 05:24 Alkaline Phosphatase 53 U/L (38-126) 03/07/18 05:24 Troponin I < 0.0120 ng/mL (0.00-0.120) 03/03/18 20:45 Total Protein 6.5 G/DL (6.3-8.2) 03/07/18 05:24 Albumin 3.6 g/dL (3.5-5.0) 03/07/18 05:24 Globulin 2.9 gm/dL (2.2-3.9) 03/07/18 05:24 Albumin/Globulin Ratio 1.3 (1.0-2.1) 03/07/18 05:24 Triglycerides 50 mg/DL (0-149) 03/04/18 05:00 Cholesterol 159 mg/dL (0-199) 03/04/18 05:00 LDL Cholesterol Direct 102 mg/dL (0-129) 03/04/18 05:00 HDL Cholesterol 39 MG/DL (30-70) 03/04/18 05:00 Vitamin B12 355 pg/mL (239-931) 03/05/18 05:00 25-OH Vitamin D Total 17.0 NG/ML (30.0-100.0) L 03/05/18 05:00 Folate 8.5 ng/mL 03/05/18 05:00 Homocysteine 9.3 umol/L (4.7-12.6) 03/07/18 05:24 Free T4 1.31 ng/dL (0.78-2.19) 03/08/18 05:20 Thyroxine (T4) 10.6 ug/dl (5.5-11.0) 03/08/18 05:20 Free T3 pg/mL 4.46 pg/mL (2.77-5.27) 03/04/18 15:30 Total T3 1.21 nmol/L (1.49-2.60) L 03/04/18 15:30 TSH 3rd Generation 0.18 mIU/ML (0.46-4.68) L 03/08/18 05:20 Cortisol AM Sample 7.2 ug/dL (4.46-22.7) 03/07/18 05:24 Blood Type A POSITIVE 03/03/18 20:40 Blood Type Confirm A POSITIVE 03/03/18 21:46 Antibody Screen Negative 03/03/18 20:40 BBK History Checked No verified bt 03/03/18 20:40 - Hospital Course Hospital Course: 47 yo f with pmhx of graves admitted for ischemic stroke. Presenting symptoms of R parasthesia have resolved. Neurology: Dr. Jamison and Trey Endocrinology: Dr. Vinson: Continue with Tapazole; f/u TOP Ab and TSH immunoglobulin Cardiology: Dr. Lopez; recommend Event monitor; ECHO with bubble study reviewed , hypercoagulable workup ER precautions reviewed with patient Pt will set an appt with her established PMD within 1 week and to follow up with cardiology, neurology and endocrinology Case dw Dr. Leonard Hebert MD PGY2 Discharge Exam - Head Exam Head Exam: NORMAL INSPECTION - Eye Exam Eye Exam: EOMI - Respiratory Exam Respiratory Exam: Clear to PA & Lateral, NORMAL BREATHING PATTERN, UNREMARKABLE. absent: Wheezes - Cardiovascular Exam Cardiovascular Exam: REGULAR RHYTHM, +S1, +S2 - GI/Abdominal Exam GI & Abdominal Exam: Normal Bowel Sounds, Soft. absent: Tenderness - Neurological Exam Neurological exam: Alert, CN II-XII Intact, Normal Gait, Oriented x3 - Psychiatric Exam Psychiatric exam: Anxious Discharge Plan - Discharge Medications Prescriptions: ALPRAZolam [Xanax] 0.25 mg PO Q12 PRN #10 tab PRN Reason: Anxiety Aspirin [Aspirin Chewable] 81 mg PO DAILY #30 chew Atorvastatin [Lipitor] 20 mg PO DAILY #30 tab Carvedilol [Coreg] 6.25 mg PO Q12 #30 tab Cholecalciferol [Vitamin D 1000 IU] 1,000 intlu PO DAILY #30 tab methIMAzole [Tapazole] 5 mg PO BID #60 tab predniSONE [Prednisone] 20 mg PO DAILY #5 tab - Follow Up Plan Condition: FAIR Disposition: HOME/ ROUTINE Patient education suggested?: Yes Instructions: Stroke (DC), Generalized Weakness (DC), Palpitations (DC) Additional Instructions: Dr. Lopez to give script for event monitor before discharge Please follow up with your primary care provider in 3-5 weeks. Please follow up with Cardiology: Dr. Lopez, Endocrinology: Dr. Vinson, Neurology: Dr. Jamisno ER precautions reviewed with pt Referrals: Ayaka Vinson MD [Medical Doctor] - Azael Lopez MD [Staff Provider] - Harley Jamison MD [Medical Doctor] -
[2018-03-08 15:39] VITALS: RESP 17; TEMP 98.1; O2SAT 97
[2018-03-08 17:34] VITALS: BP 148/96; PULSE 78
--- NOTE | 2018-03-09 02:20 | PN ---
DATE: 03/08/2018 ENDOCRINOLOGY FOLLOWUP NOTE LOCATION: Room 416. SUBJECTIVE: This is a 47-year-old female with recent admission for hyperadrenergic manifestations with palpitations and precordial chest pain and associated constitutional symptoms and was evaluated to have subclinical hyperthyroidism and started on medical therapy which she has tolerated fairly well at this time. LABORATORY DATA: Her latest chemistry showed a BUN of 11, sodium 139, potassium 3.4, chloride 104, CO2 of 28, glucose 92, and creatinine 0.7. Her repeat thyroid studies showed a T4 of 10.6 mcg/dL with a TSH of 0.18 and a free T4 of 1.31 and a cortisol level of initially 7.2 and a repeat level of 3.8 mcg/dL. ASSESSMENT AND PLAN: So at this time, we will continue the modified medical therapy and for convenience upon discharge, we will change her Tapazole from 5 mg b.i.d. to Tapazole 10 mg once daily after breakfast as ordered. The plan of care and the implications of the need for followup and dose adjustments with her exercise equipment specialist was reinforced with the patient at bedside today. She will follow with her exercise equipment specialist, Dr. Cantor, for ongoing thyroid evaluation and dose adjustments otherwise. We will follow and advise accordingly. Ayaka Vinson MD
[2018-03-09 10:36] LABS: METHYLMALONIC ACID,SERUM 105 nmol/L (87-318)
== END 2018-03-08 18:21 | disposition home or self-care (01) | DRG 65 ==
LOC: H.ER 20:17 → H.ERHOLD 21:32 → H.TEL 22:43
PROVIDERS: ADMIT Internal Medicine; ATTEND Internal Medicine
DX: I63.40 Cerebral infarction due to embolism of unspecified cerebral artery (principal); G81.91 Hemiplegia, unspecified affecting right dominant side; E05.00 Thyrotoxicosis with diffuse goiter without thyrotoxic crisis or storm; I11.9 Hypertensive heart disease without heart failure; E78.5 Hyperlipidemia, unspecified; E06.3 Autoimmune thyroiditis; Z79.82 Long term (current) use of aspirin; Z91.013 Allergy to seafood